=== PATIENT | female | born 1960 | race Two or more races ===

== ENCOUNTER 2021-05-14 11:00 | Inpatient (IN) | payer OTHER ==
[~2021-05-14] VITALS: Ht 30.5 cm; Wt 4.0 kg
[2021-05-21] MEDS ORDERED: LOSARTAN POTASS50 MG PO (07:56)
[2021-05-21] MEDS ORDERED: SIMVASTATIN10 MG PO (07:56)
[2021-05-21] MEDS ORDERED: HYDRODIURIL12.5 MG PO (07:56)
[2021-05-21] MEDS ORDERED: FORTAMET500 MG PO (07:57)
[2021-05-21] MEDS ORDERED: OMEPRAZOLE40 MG PO (07:57)
[2021-05-21] MEDS ORDERED: VITAMIN D3125 MC2 PO (07:58)
== END 2021-05-23 17:25 | disposition home or self-care (01) | DRG 331 ==
LOC: O/R 05-20 05:57 → SURH 05-20 05:57
PROVIDERS: ADMIT Colon & Rectal Surgery; ATTEND Colon & Rectal Surgery
PROC: 0DTP4ZZ Resection of Rectum, Percutaneous Endoscopic Approach (ICD-10-PCS; 2021-05-20)
PROC: 07BC4ZZ Excision of Pelvis Lymphatic, Percutaneous Endoscopic Approach (ICD-10-PCS; 2021-05-20)
PROC: 4A12X4Z Monitoring of Cardiac Electrical Activity, External Approach (ICD-10-PCS; 2021-05-20)
PROC: B54NZZZ Ultrasonography of Left Upper Extremity Veins (ICD-10-PCS; 2021-05-20)
PROC: 0DTN4ZZ Resection of Sigmoid Colon, Percutaneous Endoscopic Approach (ICD-10-PCS; principal; 2021-05-20 07:55)
DX: C19 Malignant neoplasm of rectosigmoid junction (principal); I11.9 Hypertensive heart disease without heart failure; E11.9 Type 2 diabetes mellitus without complications; E66.01 Morbid (severe) obesity due to excess calories; Z68.39 Body mass index [BMI] 39.0-39.9, adult; E78.5 Hyperlipidemia, unspecified